=== PATIENT | male | born 1970 | race African-American/Black ===

== ENCOUNTER 2018-02-23 21:05 | Emergency (ER) | payer OTHER ==
[~2018-02-23] VITALS: Ht 190.5 cm; Wt 99.8 kg
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
[2018-02-23] MEDS ORDERED: HYDROCODONE/APAP 5/325MG 1 EACH TABLET PO ONE (22:00)
[2018-02-23] MEDS ORDERED: HYDROCODONE/APAP 5/325MG 1 EACH TABLET ONE (22:14)
[2018-02-23] MEDS ORDERED: MORPHINE SULFATE INJ 4 MG/ML DISP.SYRIN ONE (22:44)
[2018-02-23] MEDS ORDERED: ONDANSETRON 4 MG TAB.RAPDIS ONE (22:44)
--- NOTE | 2018-02-23 22:54 | NUR ---
MEDICATED FOR PAIN PER PA ORDER, PT BISMARK WELL.
[2018-02-23] MEDS ORDERED: ONDANSETRON 4 MG TAB.RAPDIS PO ONE (23:00)
[2018-02-23] MEDS ORDERED: MORPHINE SULFATE INJ 2 MG/ML DISP.SYRIN IM ONE (23:00)
[2018-02-23 23:49] VITALS: BP 142/82
--- NOTE | 2018-02-23 23:51 | NUR ---
Patient discharged to home in stable condition. Written and verbal after care instructions given. Patient verbalizes understanding of instruction.
== END 2018-02-23 23:53 | disposition home or self-care (01) ==
LOC: EDBD 21:06 → ER 21:06
DX: S09.8XXA Other specified injuries of head, initial encounter (principal); M54.2 Cervicalgia; M54.5 Low back pain; M25.552 Pain in left hip; M25.551 Pain in right hip; Z96.643 Presence of artificial hip joint, bilateral; V49.49XA Driver injured in collision with other motor vehicles in traffic accident, initial encounter; Y93.89 Activity, other specified; Y92.410 Unspecified street and highway as the place of occurrence of the external cause; Y99.8 Other external cause status
CPT/HCPCS: 70450; 71045; 72070; 72125; 73521; 99284; A4606; Z7610; J2270; Q0162